=== PATIENT | female | born 1940 | race Caucasian/White ===

== ENCOUNTER 2017-11-07 17:18 | Observation (INO) ==
[2017-11-07] MEDS ORDERED: Nitroglycerin 1 INCH/GM PACKET TP ONE (17:22)
--- NOTE | 2017-11-07 17:24 | Emergency Department Note ---
Disposition Clinical Impression: Chest pain Qualifiers: Chest pain type: precordial pain Qualified Code(s): R07.2 - Precordial pain Disposition: Admitted As Inpatient Condition: Good Time of Disposition: 19:48 Chest Pain HPI - General Chief Complaint: ED Chest Pain Stated Complaint: Chest and back pain Time Seen by Provider: 11/07/17 17:22 Source: patient, family Mode of arrival: private vehicle Limitations: no limitations Vital Signs Reviewed: Yes Nursing Notes Reviewed: Yes - History of Present Illness HPI Narrative: The patient reports that she has been having more dizzy spells and usual for 2- 3 days. She is also had more dyspnea on exertion. She is noted at this time her heart has gotten as high as 128. Today she is more concerned because she is been having occasional sharp pains in her mid scapular region towards her left chest. She states this will tend to last seconds and will recur about every 30 minutes. She cannot identify anything that makes the pain better or worse. It is not affected by breathing, walking or motion. She describes the pain now as "just a little in my back". She denies associated diaphoresis but has had some nausea. She denies any cough, fevers or chills. She has radiation of pain into her abdomen jaw or arms. She denies any lower extremity swelling, immobilization or injury. She denies a new activity or straining. She denies history of previous heart disease beyond an episode of endocarditis "years ago". She has had elevated cholesterol and a family history of a father and brothers with heart disease. She denies history of hypertension, smoking, diabetes or DVT/PE. She states that she may be borderline diabetic. Pt complaint: chest pain Onset (ago): hour(s) Duration: intermittent Onset: during rest Pain Location: left chest Severity: moderate Quality: sharp Pain Radiation: back Improves with: nothing Worsens with: nothing Associated symptoms: Reports: nausea, dyspnea. Denies: vomiting, diaphoresis, syncope, palpitations, fever, cough, leg swelling Treatments prior to arrival chest pain: none - Related Data Home Medications Medication Instructions Recorded Confirmed Alendronate Sodium [Fosamax] 70 mg PO QWEEK MDD tuesday09/02/15 11/07/17 Allopurinol [Zyloprim 300 MG] 300 mg PO DAILY 09/02/15 11/07/17 Amitriptyline [Elavil] 25 mg PO HS 09/02/15 11/07/17 Calcium Carbonate/Vitamin D3 1 each PO BID 09/02/15 11/07/17 [Calcium 600 + Vit D Tablet] Celecoxib [Celebrex] 200 mg PO DAILY 09/02/15 11/07/17 Ezetimibe [Zetia] 10 mg PO DAILY 09/02/15 11/07/17 Furosemide [Lasix] 40 mg PO DAILY 09/02/15 11/07/17 Meclizine HCl [Verticalm] 25 mg PO DAILY PRN 09/02/15 11/07/17 Potassium Chloride [K-Tab ER] 10 meq PO DAILY 09/02/15 11/07/17 Lansoprazole [Prevacid] 30 mg PO DAILY 11/07/17 11/07/17 Previous Rx's Medication Instructions Recorded Ibuprofen [Motrin] 400 mg PO Q6HR PRN #20 tablet 02/05/17 Allergies Allergy/AdvReac Type Severity Reaction Status Date / Time atorvastatin [From Lipitor] AdvReac See Verified 11/07/17 17:19 Comments All systems ED: reviewed and negative except as stated. Chest Pain PMH - Past Medical History Medical history: Reports: arthritis, CHF, GERD, hyperlipidemia, hypertension, other (Vertigo). Denies: coronary artery disease Surgical history: Reports: no surgical history Psychiatric history: Reports: no psych history EPIC INTERFACE ANALYST history: Reports: no EPIC INTERFACE ANALYST history - Social History Smoking Status: Former smoker Alcohol use: Reports: none, rarely Drug use: Reports: none Physical Exam - General Limitations: no limitations General appearance: alert, in no apparent distress - Head Head exam: atraumatic, normocephalic, normal inspection - Eye Eye exam: Present: normal appearance, PERRL, EOMI. Absent: conjunctival injection - ENT ENT exam: normal exam, normal oropharynx, mucous membranes moist - Neck Neck exam: Present: normal inspection, full ROM, trachea midline - Chest Chest inspection: Present: normal inspection, symmetric chest wall rise, tenderness (Over the anterior left chest.). Absent: rash - Respiratory Respiratory exam: Present: normal lung sounds bilaterally. Absent: respiratory distress, wheezes, prolonged expiratory phase - Cardiovascular Cardiovascular exam: Present: regular rate, normal rhythm, tachycardia, normal heart sounds - Abdominal Exam Abdominal exam: Present: soft, Non-Tender, normal bowel sounds. Absent: tenderness, distention, guarding, rebound, rigidity - Extremities Exam Extremities exam: Present: normal inspection, full ROM, normal capillary refill. Absent: tenderness, pedal edema, calf tenderness - Expanded Lower Extremity Exam Neurovascular/Tendon exam: Present: normal capillary refill. Absent: motor deficit, sensory deficit, tendon deficit Gait: observed and normal - Back Exam Back exam: Present: normal inspection, full ROM. Absent: tenderness, CVA tenderness (R), CVA tenderness (L), vertebral tenderness - Neurological Exam Neurological exam: Present: alert, oriented X3 - Psychiatric Psychiatric exam: Present: normal affect, normal mood - Skin Skin exam: Present: warm, dry, intact, normal color. Absent: diaphoresis, pallor Course Course Narrative: 1804: The elevated d-dimer and atypical chest pain, CT PE study has been ordered. Given her renal insufficiency a fluid boluses also been ordered. 1944: I have talked to Dr. Arguello about patient's results. He is agreeable with observation at this facility. Verbal orders have been obtained for her observation period Vital Signs Temperature 97.1 F L 11/07/17 17:22 Pulse Rate 99 11/07/17 17:22 Respiratory Rate 16 11/07/17 17:22 Blood Pressure 150/84 11/07/17 17:22 O2 Sat by Pulse Oximetry 98 11/07/17 17:22 Temperature 97.1 F L 11/07/17 17:22 Pulse Rate 80 11/07/17 19:53 Respiratory Rate 16 11/07/17 19:53 Blood Pressure 110/68 11/07/17 19:53 O2 Sat by Pulse Oximetry 95 11/07/17 19:53 Oxygen Delivery Oxygen Delivery Room Air Chest Pain - Differential Diagnosis Likely: unstable angina pectoris, atypical chest pain, costalchondritis, chest pain - Lab Data Lab results reviewed: Yes I reviewed the patient's lab results. Result diagrams: 11/07/17 17:35 11/07/17 17:35 Lab Results 11/07/17 11/07/17 11/07/17 Range/Units 17:35 17:35 17:35 WBC 10.7 (4.3-11.1) K/mcL RBC 4.44 (3.82-4.97) M/mcL Hgb 13.6 (11.5-15.4) g/dL Hct 41.4 (35.3-44.9) % MCV 93.2 (83.0-100.0) fL MCH 30.6 (28.0-33.3) pg MCHC 32.9 (31.6-35.5) g/dL RDW 14.7 H (11.5-14.5) % Plt Count 261 (140-400) K/mcL MPV 9.7 (9.4-12.4) fL Immature Gran % 0.4 (0-4) % Seg Neutrophils % 54.6 % Lymphocytes % 34.9 % Monocytes % 5.8 % Eosinophils % 3.6 % Basophils % 0.7 % Neutrophils # 5.9 (1.6-8.9) K/mcL Lymphocytes # 3.7 (0.6-4.6) K/mcL Monocytes # 0.6 (0.0-1.3) K/mcL Eosinophils # 0.4 (0.0-0.6) K/mcL Basophils # 0.1 (0.0-0.2) K/mcL PT 11.4 (9.4-12.1) Seconds INR 1.0 APTT 30.2 (26.0-36.0) Seconds D-Dimer 1248 H (0-500) ng/mLFEU Sodium (136-145) mEq/L Potassium (3.5-5.1) mEq/L Chloride (98-107) mEq/L Carbon Dioxide (23-29) mEq/L BUN (8-23) mg/dL Creatinine (0.60-1.20) mg/dL Est GFR ( Amer) (> 60) Est GFR (Non-Af Amer) (> 60) BUN/Creatinine Ratio (6-26) Glucose (70-105) mg/dL Calculated Osmolality (280-300) Calcium (8.6-10.3) mg/dL Troponin I (< 0.04) ng/mL B-Natriuretic Peptide 14 (Less than 100) pg/mL 11/07/17 Range/Units 17:35 WBC (4.3-11.1) K/mcL RBC (3.82-4.97) M/mcL Hgb (11.5-15.4) g/dL Hct (35.3-44.9) % MCV (83.0-100.0) fL MCH (28.0-33.3) pg MCHC (31.6-35.5) g/dL RDW (11.5-14.5) % Plt Count (140-400) K/mcL MPV (9.4-12.4) fL Immature Gran % (0-4) % Seg Neutrophils % % Lymphocytes % % Monocytes % % Eosinophils % % Basophils % % Neutrophils # (1.6-8.9) K/mcL Lymphocytes # (0.6-4.6) K/mcL Monocytes # (0.0-1.3) K/mcL Eosinophils # (0.0-0.6) K/mcL Basophils # (0.0-0.2) K/mcL PT (9.4-12.1) Seconds INR APTT (26.0-36.0) Seconds D-Dimer (0-500) ng/mLFEU Sodium 138 (136-145) mEq/L Potassium 4.2 (3.5-5.1) mEq/L Chloride 108 H (98-107) mEq/L Carbon Dioxide 18 L (23-29) mEq/L BUN 36 H (8-23) mg/dL Creatinine 1.46 H (0.60-1.20) mg/dL Est GFR ( Amer) 42 L (> 60) Est GFR (Non-Af Amer) 35 L (> 60) BUN/Creatinine Ratio 25 (6-26) Glucose 145 H (70-105) mg/dL Calculated Osmolality 297 (280-300) Calcium 9.1 (8.6-10.3) mg/dL Troponin I < 0.03 (< 0.04) ng/mL B-Natriuretic Peptide (Less than 100) pg/mL - Radiology Data Radiology results reviewed: Yes I reviewed the patient's radiology results. Single view chest x-ray is performed. This does not demonstrate evidence for infiltrate, effusion, pneumothorax, foreign body or heart failure. The cardiac silhouette is normal. I do not see abnormality to the osseous structures of the chest. This is on my interpretation. Impressions Chest X-Ray 11/07/17 17:22 IMPRESSION: No acute cardiopulmonary disease. D/ / Kamron Maloney / Kamron Maloney Interpreting Provider: Kamron Maloney Impressions Chest X-Ray 11/07/17 17:22 IMPRESSION: No acute cardiopulmonary disease. D/ / Kamron Maloney / Kamron Maloney Interpreting Provider: Kamron Maloney Chest CTA 11/07/17 18:04 IMPRESSION: No evidence of pulmonary embolism or acute pulmonary abnormality. Calcific coronary artery disease. D/ / Fuad Magallon MD / Fuad Magallon MD Interpreting Provider: Fuad Magallon MD - EKG Data EKG attestation: Yes I reviewed and interpreted this EKG. EKG shows normal: sinus rhythm, axis, intervals, QRS complexes, ST-T waves Rate: normal (99) Q waves: II, III, aVF Interpretation: no acute changes Heart Score - Score History: Slightly Suspicious EKG: Normal Age: Greater than 65 Risk Factors: 1-2 risk factors Troponin: Less than normal limit HEART Score Total: 3
[2017-11-07] MEDS ORDERED: Aspirin 81 MG TAB.CHEW PO ONE (17:32)
[2017-11-07 17:44] LABS: Basophils # 0.1 K/mcL (0.0-0.2); Basophils % 0.7 %; Eosinophils # 0.4 K/mcL (0.0-0.6); Eosinophils % 3.6 %; Hematocrit 41.4 % (35.3-44.9); Hemoglobin 13.6 g/dL (11.5-15.4); Immature Granulocytes % 0.4 % (0-4); Lymphocytes # 3.7 K/mcL (0.6-4.6); Lymphocytes % 34.9 %; Mean Corpuscular HGB Conc 32.9 g/dL (31.6-35.5); Mean Corpuscular Hemoglobin 30.6 pg (28.0-33.3); Mean Corpuscular Volume 93.2 fL (83.0-100.0); Mean Platelet Volume 9.7 fL (9.4-12.4); Monocytes # 0.6 K/mcL (0.0-1.3); Monocytes % 5.8 %; Neutrophils # 5.9 K/mcL (1.6-8.9); Platelet Count 261 K/mcL (140-400); Red Blood Count 4.44 M/mcL (3.82-4.97); Red Cell Distribution Width 14.7 % (11.5-14.5); Segmented Neutrophils % 54.6 %
[2017-11-07 17:51] LABS: Prothrombin Time 11.4 Seconds (9.4-12.1)
[2017-11-07 17:54] LABS: Activated Partial Thrombo Time 30.2 Seconds (26.0-36.0)
[2017-11-07 18:02] LABS: BUN/Creatinine Ratio 25 (6-26); Blood Urea Nitrogen 36 mg/dL (8-23); Calcium 9.1 mg/dL (8.6-10.3); Carbon Dioxide 18 mEq/L (23-29); Chloride 108 mEq/L (98-107); Glucose 145 mg/dL (70-105); Osmolality,Calculated 297 (280-300); Potassium 4.2 mEq/L (3.5-5.1); Sodium 138 mEq/L (136-145); eGFR For Non-African Americans 35 (> 60)
[2017-11-07] MEDS ORDERED: 0.9 % Sodium Chloride 1,000 ML IVC ONE (18:04)
[2017-11-07] MEDS ORDERED: Isovue-370 500 ML INFUS..BTL IV ONE ×2 (18:04→20:40)
[2017-11-07 18:09] LABS: Troponin I < 0.03 ng/mL (< 0.04)
[2017-11-07] MEDS ORDERED: Ibuprofen 400 MG TABLET PO PRN (20:40)
[2017-11-07] MEDS ORDERED: NON-FORMULARY MEDICATION 1 EACH EACH (Alendronate Sodium [Fosamax] 70 MG) PO SCH (20:40)
[2017-11-07] MEDS ORDERED: Naloxone 0.4 MG/ML INJ IVP PRN (20:40)
[2017-11-07] MEDS: 0.9 % Sodium Chloride 1,000 ML IVC SCH (21:36)
[2017-11-08] MEDS: 0.9 % Sodium Chloride 1,000 ML IVC SCH (05:26)
[2017-11-08] MEDS: Nitroglycerin 1 INCH/GM PACKET TP SCH ×2 (06:16→14:38)
[2017-11-08] MEDS ORDERED: Cholecalciferol (D-3) 1,000 UNIT TABLET PO SCH (09:00)
[2017-11-08] MEDS ORDERED: Celecoxib 200 MG CAPSULE PO SCH (09:00)
[2017-11-08] MEDS ORDERED: Furosemide 40 MG TABLET PO SCH (09:00)
[2017-11-08 10:52] VITALS: BP 129/73
--- NOTE | 2017-11-08 15:11 | Internal Med History&Physical ---
Date of Encounter: 11/08/17 Time of Encounter: 14:35 Assessment and Plan (1) Chest pain Current visit: Yes Status: Acute Doubt myocardial ischemic origin from history and physical. Suspect chest wall origin. Repeat cardiac enzymes were ordered through emergency room. Qualifiers: Chest pain type: precordial pain Qualified Code(s): R07.2 - Precordial pain (2) CKD (chronic kidney disease) stage 3, GFR 30-59 ml/min Current visit: Yes Status: Acute Creatinine has risen from 0.96 on 04/28/2017 to 1.46 on admission. Her PCP can determine if decrease/discontinuation of Lasix and Celebrex is warranted. (3) Gout Current visit: No Status: Acute Uric acid level normal at 3.9 on 04/28/2017. Qualifiers: Gout site: unspecified site Chronicity: unspecified Qualified Code(s): M10.9 - Gout, unspecified Internal Medicine - H&P: HPI Chief complaint: Chest and upper back discomfort Admitted From: Emergency Dept Plans for Post Hospital Care: Home History of present illness: Ms. Cartwright is a 77 year old female who came to emergency room stating she had 2 day history of dyspnea with onset of discomfort in her upper back and left chest area approximate 4 PM day of admission while doing usual duties. She has had similar but shorter episodes of the shoulder and chest discomfort. She commonly has dyspnea on exertion. When symptoms did not resolve she came to emergency room. She was evaluated and found to have elevated d-dimer. Chest CTA showed no evidence of PE or significant lung pathology. She was admitted to [facility] floor for ongoing care needs. She states her upper back pain has almost completely resolved and her chest pain is significantly lessened. 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 She denies SD DVT or pulmonary embolus. She had echocardiogram 11/20/2015 which showed LVEF of 60-65%. There was mild LV diastolic dysfunction with E/A ratio of 0.4. There was mild aortic regurgitation and mild mitral regurgitation. She does not get chest discomfort in a predictable fashion doing her usual daily activities. Past Med Surg Social Fam HX - Past Medical History Medical history: arthritis, CHF, GERD, hyperlipidemia, hypertension, other Additional medical history: Endocarditis Psychiatric history: no psych history - Past Surgical History Surgical History: no surgical history Additional surgical history: Gall Bladder removed on 10/26/15 - Social History Smoking Status: Former smoker Smokeless Tobacco Status: No Alcohol use: none, rarely Drug use: none Internal Medicine - H&P: Meds Alendronate Sodium [Fosamax] 70 mg PO QWEEK MDD tuesday09/02/15 [History] Allopurinol [Zyloprim 300 MG] 300 mg PO DAILY 09/02/15 [History] Amitriptyline [Elavil] 25 mg PO HS 09/02/15 [History] Calcium Carbonate/Vitamin D3 [Calcium 600 + Vit D Tablet] 1 each PO BID [History] Celecoxib [Celebrex] 200 mg PO DAILY 09/02/15 [History] Ezetimibe [Zetia] 10 mg PO DAILY 09/02/15 [History] Furosemide [Lasix] 40 mg PO DAILY 09/02/15 [History] Meclizine HCl [Verticalm] 25 mg PO DAILY PRN 09/02/15 [History] Potassium Chloride [K-Tab ER] 10 meq PO DAILY 09/02/15 [History] Ibuprofen [Motrin] 400 mg PO Q6HR PRN #20 tablet 02/05/17 [Rx] Lansoprazole [Prevacid] 30 mg PO DAILY 11/07/17 [History] 3 Allergy/AdvReac Type Severity Reaction Status Date / Time atorvastatin [From Lipitor] AdvReac See Verified 11/07/17 17:19 Comments All Systems PM: A 10-system review of systems was performed and is negative for pertinent findings except as documented above in the HPI. Review of systems: Gen.: She states her weight has been stable the past few months Cardiovascular: As per history of present illness Respiratory: She smoked from approximately age [age] up to 1 pack per day. She has not had PFTs in over 10 years. She denies document chronic lung disease and does not use home oxygen.. GI: She has had cholecystectomy. She denies disorders of her liver or exocrine pancreas. : She has had UTIs in the past. She has chronic kidney disease but does not follow with a high tension tester. Neurologic: She has frequent vertigo episodes. She denies large distribution strokes or seizures. Endocrine: She has hyperlipidemia. She denies diabetes or thyroid disease. Hematology/oncology: She denies blood disorders cancers or anemia. Psychiatric: She has anxiety but denies depression or other mental health issues. [place] skeletal: She has gout, DJD, and osteoporosis. - Constitutional Vitals: Temp Pulse Resp BP Pulse Ox 98.2 F 87 17 129/73 97 11/08/17 10:48 11/08/17 10:48 11/08/17 10:48 11/08/17 10:48 11/08/17 10:48 Exam: Gen.: She is a well-developed well-nourished female resting comfortably in bed who appears in no acute distress at present time. HEENT: Head is atraumatic and normocephalic. Eyes: EOMI. There is no scleral icterus. Mouth: Mucosa is moist. Neck: Supple and nontender. There is no thyromegaly or adenopathy noted. Heart: Regular without murmurs gallops or ectopics Lungs: No wheezes or crackles are heard. Chest: She has tenderness in her left chest and costosternal area stating "that is the pain" on compression. Abdomen: Soft and nontender. No masses or guarding are noted. Extremities: There is no cyanosis edema or clubbing noted. Dorsalis pedis and posttibial pulses are trace palpable bilaterally. Neurologic: Mental status: She is talkative and a good historian. Cranial nerves: Smile is symmetric. Forehead wrinkles bilaterally. Tongue protrudes midline. EOMI. Motor: There is no pronator drift. Cerebellar: Finger to nose is intact bilaterally. Skin: Warm and dry Internal Med - H&P Results - Labs CBC & Chem 7: 11/07/17 17:35 11/07/17 17:35 Labs: Cardiac Enzymes 11/07/17 11/08/17 11/08/17 Range/Units 23:29 05:55 11:47 Troponin I < 0.03 < 0.03 < 0.03 (< 0.04) ng/mL - VTE Documentation of Mechanical Device: Graduated compression elastic hosiery
--- NOTE | 2017-11-08 15:29 | Discharge Summary ---
Date of Encounter: 11/08/17 Time of Encounter: 14:35 - Discharge Diagnosis (1) Chest pain Priority: Primary Status: Acute Qualifiers: Chest pain type: precordial pain Qualified Code(s): R07.2 - Precordial pain (2) CKD (chronic kidney disease) stage 3, GFR 30-59 ml/min Priority: Secondary Status: Acute (3) Gout Priority: Secondary Status: Chronic Qualifiers: Gout site: unspecified site Chronicity: unspecified Qualified Code(s): M10.9 - Gout, unspecified Hospital course: Ms. Cartwright is a 77 year old female who came to emergency room stating she had 2 day history of dyspnea with onset of discomfort in her upper back and left chest area approximate 4 PM day of admission while doing usual duties. She has had similar but shorter episodes of the shoulder and chest discomfort. She commonly has dyspnea on exertion. When symptoms did not resolve she came to emergency room. She was evaluated and found to have elevated d-dimer. Chest CTA showed no evidence of PE or significant lung pathology. She was admitted to [facility] for ongoing care needs. Initial orders were written by emergency room physician. I saw her on November 08 and performed the history physical and discharge. Repeat cardiac enzymes showed no evidence of myocardial damage. When I saw her I felt the chest pain was likely from chest wall origin. She reported she was already taking Celebrex daily. She was prescribed prednisone for 3 days for anti-inflammatory effect for costochondritis. Her PCP can monitor improvement and prescribe additional medication or consider costosternal joint injections etc. as needed. I discussed with her the decrease in her estimated GFR. Her PCP can determine if decrease/discontinuation of Lasix and Celebrex is warranted. Room air oximetry be checked on 6 minute walk prior to discharge to evaluate dyspnea. BN peptide was normal on ER labs at 14. She will be discharged home and follow with Dr. Paolo Guzman within 1 week. - Time Spent with Patient Total time spent providing and/or coordinating discharge services: - Discharge Medications Prescriptions: predniSONE [PredniSONE] 20 mg PO BIDWM #6 tablet Home Medications: Alendronate Sodium [Fosamax] 70 mg PO QWEEK MDD tuesday09/02/15 [History] Allopurinol [Zyloprim 300 MG] 300 mg PO DAILY 09/02/15 [History] Amitriptyline [Elavil] 25 mg PO HS 09/02/15 [History] Calcium Carbonate/Vitamin D3 [Calcium 600 + Vit D Tablet] 1 each PO BID [History] Celecoxib [Celebrex] 200 mg PO DAILY 09/02/15 [History] Ezetimibe [Zetia] 10 mg PO DAILY 09/02/15 [History] Furosemide [Lasix] 40 mg PO DAILY 09/02/15 [History] Meclizine HCl [Verticalm] 25 mg PO DAILY PRN 09/02/15 [History] Potassium Chloride [K-Tab ER] 10 meq PO DAILY 09/02/15 [History] Ibuprofen [Motrin] 400 mg PO Q6HR PRN #20 tablet 02/05/17 [Rx] Lansoprazole [Prevacid] 30 mg PO DAILY 11/07/17 [History] predniSONE [PredniSONE] 20 mg PO BIDWM #6 tablet 11/08/17 [Rx] Allergies/Adverse Reactions: 3 Allergy/AdvReac Type Severity Reaction Status Date / Time atorvastatin [From Lipitor] AdvReac See Verified 11/07/17 17:19 Comments Date of admission: 11/07/17 19:59 Primary care physician: Paolo Guzman MD - Constitutional Vitals: Temp Pulse Resp BP Pulse Ox 98.2 F 87 17 129/73 97 11/08/17 10:48 11/08/17 10:48 11/08/17 10:48 11/08/17 10:48 11/08/17 10:48 - Patient Status Disposition: Home, Self-Care Condition: Good - Discharge Instructions Follow Up With: Paolo Guzman MD [Primary Care Provider] - 1 week - Diet and Activity Activity: resume usual activities as tolerated Diet: advance to your usual diet - VTE Documentation of Mechanical Device: Graduated compression elastic hosiery
--- NOTE | 2017-11-11 09:59 | Electrocardiograph Report ---
[address] [place], [place] [address] Test Date: 2017-11-07 Pat Name: [facility] Department: [id number] Room: [facility] Gender: F [employer]: [id number] : 1940 Requested By: Cayetano Whittaker Order Number: [id number] Reading MD: Pablito Argueta Measurements Intervals [place] Rate: 99 P: 39 W[place]: 180 QRS: -31 QRSD: 107 T: 73 QT: 349 QTc: 405 Interpretive Statements SINUS RHYTHM POSSIBLE INFERIOR MYOCARDIAL INFARCTION, PROBABLY OLD ANTEROLATERAL MYOCARDIAL INFARCTION, OF INDETERMINATE AGE Electronically Signed On 11-11-2017 9:58:02 EDT by Pablito Argueta
== END 2017-11-08 16:20 | disposition home or self-care (01) ==
LOC: EMEROOPIK 17:18 → INPPIK 17:18
PROVIDERS: ADMIT Internal Medicine; ATTEND Internal Medicine